=== PATIENT | female | born 2000 | race Two or more races ===

== ENCOUNTER → 2024-07-10 | Outpatient (CLI) | payer BC, SELFPAY ==
--- NOTE | 2024-07-10 | XR_ITS ---
Examination: Wrist, left 2 views Technique: Wrist AP, lateral 2 views Date and time of exam: July 10, 2024 1247 hours INDICATIONS: Injury to the wrist 2 weeks ago wrist pain. FINDINGS: No fracture or dislocation. No opaque foreign body IMPRESSION: No fracture or dislocation
== END | disposition home or self-care (01) ==
PROVIDERS: PCP Nurse Practitioner Family; Referring Provider Nurse Practitioner Family; Visit Provider Nurse Practitioner Family
DX: S69.92XA Unspecified injury of left wrist, hand and finger(s), initial encounter (principal); X58.XXXA Exposure to other specified factors, initial encounter
CPT/HCPCS: 73100